=== PATIENT | female | born 1960 | race Caucasian/White ===

== ENCOUNTER → 2017-05-01 | Outpatient (CLI) | payer MEDICARE ==
[~2017-05-01] MED LIST: ACTOS PO; ACTOS15 MG PO; ALLEGRA; ALLEGRA ALLERG180 MG PO; ALLEGRA PO; ALLEGRA180 MG PO; ALPHA LIPOIC A300 MG PO; ALPRAZOLAM; ALPRAZOLAM PO; AMBIEN CR PO; AMBIEN10 MG PO; ASPIRIN; ASPIRIN PO; ASPIRINEC PO; AVINZA PO; BACLOFEN10 MG PO; CELEBREX; CELEBREX PO; CHRONULAC10 GM/15 M PO; COLCRYS0.6 MG PO; COMBIGAN EYE DRO5 ML; COMBIGAN EYE DRO5 ML OU; COUMADIN1 MG PO; CYMBALTA; CYMBALTA PO; DEPAKOTE; DEPAKOTE ER PO; DEPAKOTE PO; DEPAKOTE250 MG PO; DICYCLOMINE HCL20 MG; DICYCLOMINE HCL20 MG PO; DIOVAN; DIOVAN HCT 160-1 TAB PO; DURAGESIC; DURAGESIC TOP; DURAGESIC100 MCG EXT; DURAGESIC75 MCG EXT; EFFEXOR XR PO; EMBEDA 30-1.21 EACH PO; EXFORGE 10-1601 TAB PO; EXFORGE HCT 101 EAC1 PO; FENOFIBRATE145 MG PO; FENTANYL1 EAC1; FLEXERIL10 MG PO; FOLIC ACID PO; GLUCOPHAGE XR500 MG; HYDROCODON-ACE1 EAC5 PO; IMDUR PO; IMDUR-ER30 M1 PO; IMDUR-ER30 MG PO; IMDUR30 MG PO; K-DUR10 MEQ PO; KLONOPIN; KLONOPIN PO; KLOR-CON PO; LACTULOSE10 G/15 M1; LACTULOSE10 G/15 M1 PO; LACTULOSE10 G/15 ML PO; LASIX; LASIX PO; LASIX20 MG PO; LATANOPROST2.5 ML OU; LEVOTHYROXINE175 MCG PO; LEVOXYL125 MC1 PO; LEXAPRO; LEXAPRO PO; LOTREL 10/20 MG1 CAP; LOTREL 10/20 MG1 CAP PO; LOTREL PO; METANX TABLET1 TA1 PO; METFORMIN PO; METOPROLOL TAR100 MG PO; MEXILETINE HCL150 MG PO; MEXITIL; MEXITIL PO; MEXITIL150 MG PO; MICRO-K; MULTI VITAMIN1 EACH PO; MULTI-DAY VITAM1 TAB PO; MULTI-VITAMIN1 TAB; MULTI-VITAMIN1 TAB PO; NAMENDA10 MG PO; NASONEX17 GM; NEURONTIN100 MG PO; NEXIUM; NEXIUM PO; OPANA; OPANA ER PO; OXYMORPHONE PO; PARAFON FORTE500 MG PO; PHENERGAN; PHENERGAN PO; PHENERGAN PR; PHENERGAN25 M1 PO; PHENERGAN25 MG PO; POTASSIUM CHLO10 MEQ PO; PRAVACHOL10 MG PO; PRAVASTATIN SOD10 MG PO; PREMPRO 0.1 TAB 0.62 PO; PREMPRO 0.625/21 TAB PO; RESTASIS32 EA OU; RISPERDAL1 M1 PO; RITE-AID PHARMACY; SEROQUEL PO; SEROQUEL50 M1 PO; SYNTHROID; SYNTHROID PO; SYNTHROID0.1 MG PO; TOPROL XL; TOPROL XL PO; TOPROL XL100 MG PO; TRAVATAN Z5 ML; TRAVATAN Z5 ML OS; TRICOR; TRICOR PO; TRICOR145 MG PO; VERAMYST10 GM NS; VIT B-12 PO; VITAMIN B12 IM; WELLBUTRIN SR; XALATAN OP; XALATAN OS; XANAX0.5 M1 PO; XANAX0.5 MG PO; ZONEGRAN100 M1 PO; ZONEGRAN100 MG PO; [UNRECOGNIZED DRUG - OTHER]; [UNRECOGNIZED DRUG - OTHER] PO
--- NOTE | ~2017-05-01 | CT3 ---
[facility] A Service of [place] [facility] RADIOLOGY TEXT RESULTS PATIENT: RICHARD BILL LOCATION: [facility] : 62 UNIT #: [id number] AGE: [address]: PETER HAWLEY MD SEX: F ORDER DR: [id number] [facility] [address] [place], [place] [address] [id number] O MR#: [id number] Acc #: [id number] NAME: RICHARD BILL : 1960 SEX: F STUDY DATE/TIME: 05/01/2017 14:21 UNIT: [facility] ROOM: STUDY DESCRIPTION: CT Abd and Pelv WWo Cont Attending Physician: Peter Hawley M.D. Referring Physician: Peter Hawley M.D. Ordering Physician: Peter Hawley M.D. Primary Care Physician: Peter Hawley M.D. MEDICAL IMAGING REPORT This report is preliminary unless electronic signature is present EXAM CT of the abdomen and pelvis without and with contrast media, 05/01 HISTORY Chronic pancreatitis diagnosed in April 2013. History of pancreatic pseudocyst. Epigastric pain for the last 3 months. Recent new diagnosis of diabetes. COMPARISON 01/31/2014 TECHNIQUE Axial imaging of the abdomen and pelvis was obtained without and with contrast media. This CT exam was performed with one or more of the following radiation dose reduction techniques: automatic exposure control, adjustment of mA and/or kV according to patient size, and iterative reconstruction. FINDINGS Lung bases are unremarkable. Precontrast imaging of the abdomen shows mild hepatic steatosis. There is pneumobilia present. Gallbladder is absent. Adrenal glands are unremarkable. Kidneys appear somewhat lobulated but otherwise normal. Pancreas is markedly atrophic. There is no peripancreatic edema. Contrast was administered. There are no enhancing liver lesions. The hepatic artery and portal vein are patent. Splenic vein is patent. There are no enhancing pancreatic lesions. There is a enhancing mass near the tail of pancreas consistent with a accessory splenic nodule. A 1.4 cm right renal cyst is apparent. Scans through the pelvis show no pelvic masses or fluid collections. No dilated or thickened loops of bowel are seen. The appendix is normal. Delayed imaging was performed. There are no additional findings. [facility] A Service of [facility] RADIOLOGY TEXT RESULTS PATIENT: RICHARD BILL LOCATION: [facility] : 62 UNIT #: [id number] AGE: [address]: PETER HAWLEY MD SEX: F ORDER DR: CONCLUSION 1. Mild hepatic steatosis. 2. Status post cholecystectomy, pneumobilia. 3. Incidental 1.4 cm right renal cyst. 4. 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 The pancreas itself is markedly atrophic with no pancreatic lesions and no evidence of pancreatitis. Dictated by... Дмитрий Alvarado M.D. THIS IS AN ELECTRONICALLY VERIFIED REPORT Дмитрий Alvarado M.D. at 05/04/2017 8:39 AM AZALEA/arin TD: 05/02/2017 14:08 JOB #: [id number] MEDICAL IMAGING REPORT Page 1 of 1 COPY
[2017-05-01 13:01] LABS: POC - CREATININE 1.13 mg/dL (0.44-1.03)
== END | disposition home or self-care (01) ==
LOC: CCAT 12:08
PROVIDERS: Family Medicine
DX: K86.1 Other chronic pancreatitis (principal); K86.81 Exocrine pancreatic insufficiency; K76.0 Fatty (change of) liver, not elsewhere classified; K86.89 Other specified diseases of pancreas; Z90.49 Acquired absence of other specified parts of digestive tract
CPT/HCPCS: 74178; 82565; 96360; 96361; Q9967